=== PATIENT | female | born 1955 | race Caucasian/White ===

== ENCOUNTER 2019-09-17 08:06 | Observation (INO) | payer MEDICARE, OTHER ==
[2019-09-12 09:07] LABS: BASOPHILS % 0.5 % (0.0-1.0); EOSINOPHILS # (AUTO) 0.1 (0.0-0.4); EOSINOPHILS % 1.9 % (0.0-6.0); HEMATOCRIT 36.8 % (34.2-44.1); HEMOGLOBIN 12.4 g/dL (12.0-16.0); LYMPHOCYTES # (AUTO) 1.8 (1.0-3.2); LYMPHOCYTES % 23.5 % (18.0-39.1); MEAN CORPUSCULAR HEMOGLOBIN 29.7 pg (28-32); MEAN CORPUSCULAR HGB CONC 33.7 g/dL (31-35); MEAN CORPUSCULAR VOLUME 88.2 fL (81-99); MONOCYTES # (AUTO) 0.7 (0.2-0.8); MONOCYTES % 9.5 % (4.4-11.3); NEUTROPHILS # (AUTO) 4.9 (2.1-6.9); NEUTROPHILS % 64.3 % (38.7-80.0); PLATELET COUNT 239 x10e3/uL (140-360); RED BLOOD COUNT 4.17 x10e6/uL (3.6-5.1); RED CELL DISTRIBUTION WIDTH 13.2 % (11.7-14.4)
[2019-09-12 09:24] LABS: ANION GAP 16.4 mmol/L (8-16); BLOOD UREA NITROGEN 30 mg/dL (7-26); BUN/CREATININE RATIO 41 (6-25); CARBON DIOXIDE 24 mmol/L (22-29); CHLORIDE 101 mmol/L (98-107); CREATININE, SERUM 0.74 mg/dL (0.57-1.11); EST GLOMERULAR FILTRATION RATE > 60 ML/MIN (60-); GLUCOSE 138 mg/dL (74-118); POTASSIUM 4.4 mmol/L (3.5-5.1); SODIUM 137 mmol/L (136-145)
--- NOTE | 2019-09-12 09:33 | Diagnostic Imaging Report ---
EXAMINATION: CHEST 2 VIEWS INDICATION: Pre-operative COMPARISON: None FINDINGS: LINES/TUBES:None LUNGS:The lungs are well-inflated. No focal consolidation or pulmonary edema. Mild biapical pleural parenchymal thickening/scarring. PLEURA:No pleural effusion or pneumothorax. MEDIASTINUM:The cardiomediastinal silhouette appears normal in size and shape. BONES/SOFT TISSUES:No acute osseous injury. ABDOMEN:No free air under the diaphragm. IMPRESSION: No focal pneumonia or pulmonary edema. Signed by: Dot Bradley MD on 09/12/2019 9:30 AM
[~2019-09-17] VITALS: Ht 154.9 cm; Wt 121.4 kg
[2019-09-17] MEDS: LACTATED RINGER'S 1,000 ML IV SCH ×2 (07:56→18:17)
[~2019-09-17 08:06] MED LIST: BARIATRIC MV-I1 EACH PO; LISINOPRIL-HCT1 EACH PO; METFORMIN HCL500 MG PO; METOPROLOL SUCC25 MG PO; MORPHINE SULFATE 2 MG/ML SYR 1ML IV PRN; NOVOLIN N100 UNIT/1 SC; ONDANSETRON HCL INJ 2MG/ML 2ML 2 MG/ML VIAL IV PRN; PAIN RELIEF PO; SCOPOLAMINE 1.5 MG PATCH TOP SCH; [UNRECOGNIZED DRUG - OTHER] PO
[2019-09-17] MEDS ORDERED: SUGAMMADEX SODIUM 200 MG/2 ML VIAL IV ONE (08:11)
--- OUTSIDE RECORDS SUMMARY | 2019-09-17 08:14 | XMS REPORT ---
Author [facility] Address Unknown Phone Unavailable Care Team Providers Care Registered Dental Hygienist Name Role Phone Ade ESCUDERO Unavailable Unavailable Payers Payer Name Policy Type Policy Number Effective Date Expiration Date Problems This patient has no known problems. Allergies, Adverse Reactions, Alerts Allergy Name Allergy Type Status Severity Reaction(s) Onset Date Inactive Date Treating Clinician Comments codeine DA Active PR 2018-12-31 00:00:00 codeine DA Active PR 2018-05-19 00:00:00 codeine DA Active U 2014-01-20 00:00:00 Medications This patient has no known medications. Results Test Description Test Time Test Comments Text Results Atomic Results Result Comments CHEST 2 VIEWS 2019-09-12 09:29:00 [facility] [address], [place] [address] Patient Name: KHANG BOWDEN MR #: [id number] : 1955 Age/Sex: 64/F Req #: [id number] Adm Physician: Ordered by: JUANCARLOS ESCUDERO MD Report #: [id number] Location: OR Room/Bed: Procedure: [id number] DX/CHEST 2 VIEWS Exam Date: 09/12/19 Exam Time: 899 REPORT STATUS: Signed EXAMINATION: CHEST 2 VIEWS INDICATION: Pre-operative COMPARISON: None FINDINGS: LINES/TUBES:None LUNGS:The lungs are well-inflated. No focal consolidation or pulmonary edema. Mild biapical pleural parenchymal thickening/scarring. PLEURA:No pleural effusion or pneumothorax. MEDIASTINUM:The cardiomediastinal silhouette appears normal in size and shape. BONES/SOFT TISSUES:No acute osseous injury. ABDOMEN:No free air under the diaphragm. IMPRESSION: No focal pneumonia or pulmonary edema. Signed by: Megan Coleman MD on 09/12/2019 9:30 AM Dictated By: MEGAN COLEMAN MD 9 Transcribed By: CELI on 09/12/19929 COPY TO: JUANCARLOS ESCUDERO MD GLUBED 2019-01-04 01:03:00 GLUBED (test code=GLUBED) 234 mg/dL 70-110 [id number] 01:02:00* Test Item Value Reference Range Comments GLUBED (test code=GLUBED) 234 mg/dL 70-110 [id number] 11:13:00* Test Item Value Reference Range Comments GLUBED (test code=GLUBED) 203 mg/dL 70-110 [id number] 07:11:00* Test Item Value Reference Range Comments GLUBED (test code=GLUBED) 189 mg/dL 70-110 [id number] 15:34:00* Test Item Value Reference Range Comments GLUBED (test code=GLUBED) 191 mg/dL 70-110 [id number] 11:06:00* Test Item Value Reference Range Comments GLUBED (test code=GLUBED) 237 mg/dL 70-110 [id number] 06:50:00* Test Item Value Reference Range Comments GLUBED (test code=GLUBED) 227 mg/dL 70-110 BASIC METABOLIC [id number] 06:11:00* Test Item Value Reference Range Comments SODIUM (test code=NA) 138 mmol/l 134.0-147.0 POTASSIUM (test code=K) 3.6 mmol/L 3.6-5.2 CHLORIDE (test code=CL) 105 mmol/l 98.0-107.0 CARBON DIOXIDE (test code=CO2) 24.7 mmol/l 21.0-33.0 ANION GAP (test code=GAP) 11.9 0-20 GLUCOSE (test code=GLU) 242 mg/dl 70.0-110.0 BLOOD UREA NITROGEN (test code=BUN) 11 mg/dl 7.0-18.0 CREATININE (test code=CREAT) 0.72 mg/dL 0.60-1.30 GFR NON BLACK (test code=GFRNONBLACK) 86 mL/min 80-90 GFR BLACK (test code=GFRBLACK) 104 mL/min 97-109 CALCIUM (test code=CA) 8.1 mg/dl 8.0-10.5 [id number] 06:11:00* Test Item Value Reference Range Comments MAGNESIUM (test code=MAG) 1.7 mg/dl 1.8-2.4 CBC W/AUTO [id number] 05:52:00* Test Item Value Reference Range Comments WHITE BLOOD CELL (test code=WBC) 6.3 K/mm3 4.5-11.0 RED BLOOD CELL (test code=RBC) 4.13 M/mm3 3.80-5.20 HEMOGLOBIN (test code=HGB) 11.6 gm/dL 12.0-16.0 HEMATOCRIT (test code=HCT) 36.9 % 36.0-48.0 MEAN CELL VOLUME (test code=MCV) 89.3 UM3 82.0-99.0 MEAN CELL HGB (test code=MCH) 28.1 UUG 25.5-32.5 MEAN CELL HGB CONCETRATION (test code=MCHC) 31.4 gm/dL 29.0-35.5 RED CELL DISTRIBUTION WIDTH (test code=RDW) 13.3 % 11.5-15.0 RED CELL DISTRIBUTION WIDTH SD (test code=RDW-SD) 43.3 fL 34.8-50.2 PLATELET COUNT (test code=PLT) 198 K/mm3 150-400 MEAN PLATELET VOLUME (test code=MPV) 12.0 fl 7.4-10.4 NEUTROPHIL % (test code=NT%) 50.7 % 49.0-76.0 IMMATURE GRANULOCYTE % (test code=IG%) 0.5 % 0.0-0.4 LYMPHOCYTE % (test code=LY%) 38.0 % 23.0-38.0 MONOCYTE % (test code=MO%) 8.1 % 1.0-10.0 EOSINOPHIL % (test code=EO%) 2.2 % 1.0-5.0 BASOPHIL % (test code=BA%) 0.5 % 0.0-1.0 NEUTROPHIL # (test code=NT#) 3.2 K/mm3 2.4-6.3 IMMATURE GRANULOCYTE # (test code=IG#) 0.03 x10 3/uL 0.00-0.07 LYMPHOCYTE # (test code=LY#) 2.4 K/mm3 1.2-4.0 MONOCYTE # (test code=MO#) 0.5 K/mm3 0.0-0.6 EOSINOPHIL # (test code=EO#) 0.1 K/MM3 0.0-0.7 BASOPHIL # (test code=BA#) 0.0 K/mm3 0.0-0.2 THYROID STIMULATING [id number] 16:21:00* Test Item Value Reference Range Comments THYROID STIMULATING HORMONE (test code=TSH) 0.43 IU/ML 0.47-5.01 Result is in International Units/milliliter [id number] 11:59:00* Test Item Value Reference Range Comments GLUBED (test code=GLUBED) 252 mg/dL 70-110 [id number] 08:10:00* Test Item Value Reference Range Comments GLUBED (test code=GLUBED) 222 mg/dL 70-110 COMPREHENSIVE METABOLIC [id number] 08:01:00* Test Item Value Reference Range Comments SODIUM (test code=NA) 133 mmol/l 134.0-147.0 POTASSIUM (test code=K) 4.2 mmol/L 3.6-5.2 CHLORIDE (test code=CL) 99 mmol/l 98.0-107.0 CARBON DIOXIDE (test code=CO2) 25.9 mmol/l 21.0-33.0 ANION GAP (test code=GAP) 12.3 0-20 GLUCOSE (test code=GLU) 277 mg/dl 70.0-110.0 BLOOD UREA NITROGEN (test code=BUN) 14 mg/dl 7.0-18.0 CREATININE (test code=CREAT) 0.72 mg/dL 0.60-1.30 GFR NON BLACK (test code=GFRNONBLACK) 86 mL/min 80-90 GFR BLACK (test code=GFRBLACK) 104 mL/min 97-109 TOTAL PROTEIN (test code=PROT) 6.7 gm/dL 6.4-8.2 ALBUMIN (test code=ALB) 3.0 gm/dl 3.2-4.7 CALCIUM (test code=CA) 8.9 mg/dl 8.0-10.5 BILIRUBIN TOTAL (test code=BILT) 0.6 mg/dl 0.0-1.0 SGOT/AST (test code=AST) 16 Units/L 15.0-37.0 SGPT/ALT (test code=ALT) 38 Units/L 12.0-78.0 ALKALINE PHOSPHATASE TOTAL (test code=ALKP) 65 Units/L 50.0-136.0 Comments to Chemical Process Analyst: Patient is currently in the ED waiting on a bedLIPID PROFILE (CORONARY RISK)2018-12-31 08:01:00* Test Item Value Reference Range Comments TRIGLYCERIDES (test code=TRIG) 75 mg/dl 40.0-150.0 CHOLESTEROL (test code=CHOL) 107 mg/dl 0.0-200.0 CHOLESTEROL/HDL RATIO (test code=CHOLHDL) 2.0 RATIO HDL CHOLESTEROL (test code=HDL) 54 mg/dl 30.0-60.0 LIPOPROTEIN LDL (test code=LDL) 40 mg/dl 70-130 Comments to Chemical Process Analyst: Patient is currently in the ED waiting on a [id number] 08:01:00* Test Item Value Reference Range Comments MAGNESIUM (test code=MAG) 1.8 mg/dl 1.8-2.4 Comments to Chemical Process Analyst: Patient is currently in the ED waiting on a bedCARDIAC ENZYMES [id number] 08:01:00* Test Item Value Reference Range Comments CREATINE KINASE (CK) (test code=CK) 25 Units/L 26-192 TROPONIN-I (test code=TROPI) <0.02 NG/ML 0.00-0.06 REFERENCE RANGE TROPONIN I HEALTHY INDIVIDUALS: <0.06 ng/mL R/O ISCHEMIA: 0.07 - 0.60 ng/mL CUT-OFF RANGE FOR AMI: 0.60 - 1.5 ng/mL : Specimen comments: Please see the initial specimen in the lab as the first draw on this series Comments to Chemical Process Analyst: Please draw the 2nd specimen q4hrs after the first and the 3rd 8hrs after the first.Specime n comments: drawn Q4hrs then [id number] to Chemical Process Analyst: Patient is currently in the ED waiting on a bedCBC W/AUTO [id number] 06:29:00* Test Item Value Reference Range Comments WHITE BLOOD CELL (test code=WBC) 9.0 K/mm3 4.5-11.0 RED BLOOD CELL (test code=RBC) 4.45 M/mm3 3.80-5.20 HEMOGLOBIN (test code=HGB) 12.7 gm/dL 12.0-16.0 HEMATOCRIT (test code=HCT) 38.5 % 36.0-48.0 MEAN CELL VOLUME (test code=MCV) 86.5 UM3 82.0-99.0 MEAN CELL HGB (test code=MCH) 28.5 UUG 25.5-32.5 MEAN CELL HGB CONCETRATION (test code=MCHC) 33.0 gm/dL 29.0-35.5 RED CELL DISTRIBUTION WIDTH (test code=RDW) 12.9 % 11.5-15.0 RED CELL DISTRIBUTION WIDTH SD (test code=RDW-SD) 40.7 fL 34.8-50.2 PLATELET COUNT (test code=PLT) 207 K/mm3 150-400 MEAN PLATELET VOLUME (test code=MPV) 11.9 fl 7.4-10.4 NEUTROPHIL % (test code=NT%) 84.4 % 49.0-76.0 IMMATURE GRANULOCYTE % (test code=IG%) 0.2 % 0.0-0.4 LYMPHOCYTE % (test code=LY%) 10.5 % 23.0-38.0 MONOCYTE % (test code=MO%) 4.5 % 1.0-10.0 EOSINOPHIL % (test code=EO%) 0.1 % 1.0-5.0 BASOPHIL % (test code=BA%) 0.3 % 0.0-1.0 NEUTROPHIL # (test code=NT#) 7.6 K/mm3 2.4-6.3 IMMATURE GRANULOCYTE # (test code=IG#) 0.02 x10 3/uL 0.00-0.07 LYMPHOCYTE # (test code=LY#) 0.9 K/mm3 1.2-4.0 MONOCYTE # (test code=MO#) 0.4 K/mm3 0.0-0.6 EOSINOPHIL # (test code=EO#) 0.0 K/MM3 0.0-0.7 BASOPHIL # (test code=BA#) 0.0 K/mm3 0.0-0.2 Comments to Chemical Process Analyst: Patient is currently in the ED waiting on a bedCARDIAC ENZYMES [id number] 03:05:00* Test Item Value Reference Range Comments CREATINE KINASE (CK) (test code=CK) 22 Units/L 26-192 TROPONIN-I (test code=TROPI) <0.02 NG/ML 0.00-0.06 REFERENCE RANGE TROPONIN I HEALTHY INDIVIDUALS: <0.06 ng/mL R/O ISCHEMIA: 0.07 - 0.60 ng/mL CUT-OFF RANGE FOR AMI: 0.60 - 1.5 ng/mL : Specimen comments: Please see the initial specimen in the lab as the first draw on this series Comments to Chemical Process Analyst: Please draw the 2nd specimen q4hrs after the first and the 3rd 8hrs after the first.Specime n comments: drawn Q4hrs then [id number] to Chemical Process Analyst: Patient is currently in the ED waiting on a bedURINALYSIS COMPLETE 2018-12-30 22:57:00* Test Item Value Reference Range Comments UA COLOR (test code=COLU) LT YELLOW UA APPEARANCE (test code=APPU) CLEAR UA GLUCOSE DIPSTICK (test code=DGLUU) 1000 mg/dl mg/dl NORMAL UA BILIRUBIN DIPSTICK (test code=BILU) NEGATIVE mg/dL NEGATIVE UA KETONE DIPSTICK (test code=KETU) 50 mg/dl mg/dl NEGATIVE UA SPECIFIC GRAVITY (test code=SGU) 1.010 1.000-1.030 UA BLOOD DIPSTICK (test code=ABBY) NEGATIVE Trevor/micL NEGATIVE UA PH DIPSTICK (test code=WILIAM) 6.0 5.0-9.0 UA PROTEIN DIPSTICK (test code=PROU) NEGATIVE mg/dl NEGATIVE UA UROBILINIOGEN DIPSTICK (test code=URO) NORMAL mg/dl NORMAL UA NITRITE DIPSTICK (test code=BAKARI) NEGATIVE NEGATIVE UA LEUKOCYTE ESTERASE DIPSTICK (test code=LEUU) NEGATIVE Hilario/micL NEGATIVE UA WBC (test code=WBCU) 0-2 WBC/HPF NONE UA RBC (test code=RBCU) 0-2 RBC/HPF 0-3 UA EPITHELIAL CELLS (test code=EPIU) 5-10 EPI/HPF 0-3 UA BACTERIA (test code=BACU) FEW NONE UA YEAST (test code=YEASTU) MODERATE NEGATIVE Specimen comments: Clean CatchDRUGS OF ABUSE SCREEN [id number] 22:48:00* Test Item Value Reference Range Comments URN COCAINE (test code=COCAURN) NEGATIVE NEGATIVE Cocaine cut-off concentration: 300 ng/mL URN CANNABINOIDS (test code=CANNABURN) NEGATIVE NEGATIVE Cannabinoids cut-off concentration: 50 ng/mL URN AMPHETAMINE (test code=AMPHETURN) POSITIVE NEGATIVE UNCONFIRMED INITIAL SCREENING ONLY; SUGGEST ADDITIONALCONFIRMATORY TESTING.Amphetamine cut-off concentration: 1000 ng/mL URN BARBITURATE (test code=BARBITURN) NEGATIVE NEGATIVE Barbiturate cut-off concentration: 200 ng/mL URN BENZODIAZEPINE (test code=BENZOURN) NEGATIVE NEGATIVE Benzodiazepine cut- off concentration: 200 ng/mL URN OPIATES (test code=OPIATURN) NEGATIVE NEGATIVE Opiates cut-off concentration: 200 ng/mL URN PHENCYCLIDINE (PCP) (test code=PHENCURN) NEGATIVE NEGATIVE Phencyclidine(PCP) cut-off concentration: 25 ng/ml URN METHADONE (test code=METHAURN) NEGATIVE NEGATIVE Methadone cut-off concentration: 300 ng/mL Specimen comments: .URINALYSIS [id number] 22:40:00* Test Item Value Reference Range Comments UA COLOR (test code=COLU) LT YELLOW UA APPEARANCE (test code=APPU) CLEAR UA GLUCOSE DIPSTICK (test code=DGLUU) 1000 mg/dl mg/dl NORMAL UA BILIRUBIN DIPSTICK (test code=BILU) NEGATIVE mg/dL NEGATIVE UA KETONE DIPSTICK (test code=KETU) 50 mg/dl mg/dl NEGATIVE UA SPECIFIC GRAVITY (test code=SGU) 1.010 1.000-1.030 UA BLOOD DIPSTICK (test code=ABBY) NEGATIVE Trevor/micL NEGATIVE UA PH DIPSTICK (test code=WILIAM) 6.0 5.0-9.0 UA PROTEIN DIPSTICK (test code=PROU) NEGATIVE mg/dl NEGATIVE UA UROBILINIOGEN DIPSTICK (test code=URO) NORMAL mg/dl NORMAL UA NITRITE DIPSTICK (test code=BAKARI) NEGATIVE NEGATIVE UA LEUKOCYTE ESTERASE DIPSTICK (test code=LEUU) NEGATIVE Hilario/micL NEGATIVE UA WBC (test code=WBCU) WBC/HPF NONE UA RBC (test code=RBCU) RBC/HPF 0-3 UA EPITHELIAL CELLS (test code=EPIU) EPI/HPF 0-3 UA BACTERIA (test code=BACU) NONE Specimen comments: Clean CatchBASIC METABOLIC [id number] 22:29:00* Test Item Value Reference Range Comments SODIUM (test code=NA) 131 mmol/l 134.0-147.0 POTASSIUM (test code=K) 3.4 mmol/L 3.6-5.2 CHLORIDE (test code=CL) 94 mmol/l 98.0-107.0 CARBON DIOXIDE (test code=CO2) 21.1 mmol/l 21.0-33.0 ANION GAP (test code=GAP) 19.3 0-20 GLUCOSE (test code=GLU) 361 mg/dl 70.0-110.0 BLOOD UREA NITROGEN (test code=BUN) 15 mg/dl 7.0-18.0 CREATININE (test code=CREAT) 0.90 mg/dL 0.60-1.30 GFR NON BLACK (test code=GFRNONBLACK) 67 mL/min 80-90 GFR BLACK (test code=GFRBLACK) 81 mL/min 97-109 CALCIUM (test code=CA) 9.4 mg/dl 8.0-10.5 Specimen comments: Clean CatchSpecimen comments: .HEPATIC FUNCTION PANEL A 2018-12-30 22:29:00* Test Item Value Reference Range Comments TOTAL PROTEIN (test code=PROT) 8.1 gm/dL 6.4-8.2 ALBUMIN (test code=ALB) 3.8 gm/dl 3.2-4.7 BILIRUBIN TOTAL (test code=BILT) 0.8 mg/dl 0.0-1.0 BILIRUBIN DIRECT (test code=BILD) 0.2 mg/dl 0.0-0.3 SGOT/AST (test code=AST) 24 Units/L 15.0-37.0 SGPT/ALT (test code=ALT) 44 Units/L 12.0-78.0 ALKALINE PHOSPHATASE TOTAL (test code=ALKP) 90 Units/L 50.0-136.0 Specimen comments: Clean CatchSpecimen comments: .[id number] 22:29:00* Test Item Value Reference Range Comments LIPASE (test code=LIP) 79 Units/L 65.0-230.0 Specimen comments: Clean CatchSpecimen comments: .B-TYPE NATRIURETIC PEPTIDE 2018-12-30 22:29:00* Test Item Value Reference Range Comments B-TYPE NATRIURETIC PEPTIDE (test code=BNP) 30 PG/ML 5-100 Specimen comments: Clean CatchSpecimen comments: .[id number] 22:29:00 * Test Item Value Reference Range Comments TROPONIN-I (test code=TROPI) <0.02 NG/ML 0.00-0.06 REFERENCE RANGE TROPONIN I HEALTHY INDIVIDUALS: <0.06 ng/mL R/O ISCHEMIA: 0.07 - 0.60 ng/mL CUT-OFF RANGE FOR AMI: 0.60 - 1.5 ng/mL Specimen comments: Clean CatchSpecimen comments: .BASIC METABOLIC PANEL 2018-12-30 22:19:00* Test Item Value Reference Range Comments SODIUM (test code=NA) 131 mmol/l 134.0-147.0 POTASSIUM (test code=K) 3.4 mmol/L 3.6-5.2 CHLORIDE (test code=CL) 94 mmol/l 98.0-107.0 CARBON DIOXIDE (test code=CO2) 21.1 mmol/l 21.0-33.0 ANION GAP (test code=GAP) 19.3 0-20 GLUCOSE (test code=GLU) 361 mg/dl 70.0-110.0 BLOOD UREA NITROGEN (test code=BUN) 15 mg/dl 7.0-18.0 CREATININE (test code=CREAT) 0.90 mg/dL 0.60-1.30 GFR NON BLACK (test code=GFRNONBLACK) 67 mL/min 80-90 GFR BLACK (test code=GFRBLACK) 81 mL/min 97-109 CALCIUM (test code=CA) 9.4 mg/dl 8.0-10.5 Specimen comments: Clean CatchSpecimen comments: .HEPATIC FUNCTION PANEL A 2018-12-30 22:19:00* Test Item Value Reference Range Comments TOTAL PROTEIN (test code=PROT) 8.1 gm/dL 6.4-8.2 ALBUMIN (test code=ALB) 3.8 gm/dl 3.2-4.7 BILIRUBIN TOTAL (test code=BILT) 0.8 mg/dl 0.0-1.0 BILIRUBIN DIRECT (test code=BILD) 0.2 mg/dl 0.0-0.3 SGOT/AST (test code=AST) 24 Units/L 15.0-37.0 SGPT/ALT (test code=ALT) 44 Units/L 12.0-78.0 ALKALINE PHOSPHATASE TOTAL (test code=ALKP) 90 Units/L 50.0-136.0 Specimen comments: Clean CatchSpecimen comments: .[id number] 22:19:00* Test Item Value Reference Range Comments LIPASE (test code=LIP) 79 Units/L 65.0-230.0 Specimen comments: Clean CatchSpecimen comments: .B-TYPE NATRIURETIC PEPTIDE 2018-12-30 22:19:00* Test Item Value Reference Range Comments B-TYPE NATRIURETIC PEPTIDE (test code=BNP) PG/ML 5-100 Specimen comments: Clean CatchSpecimen comments: .[id number] 22:19:00 * Test Item Value Reference Range Comments TROPONIN-I (test code=TROPI) <0.02 NG/ML 0.00-0.06 REFERENCE RANGE TROPONIN I HEALTHY INDIVIDUALS: <0.06 ng/mL R/O ISCHEMIA: 0.07 - 0.60 ng/mL CUT-OFF RANGE FOR AMI: 0.60 - 1.5 ng/mL Specimen comments: Clean CatchSpecimen comments: .[id number] 22:19:00* Test Item Value Reference Range Comments HGBA1C% (test code=HGBA1C%) 11.3 %A1C 4.8-6.0 ESTIMATED AVERAGE GLUCOSE (test code=EAG) 278 MG/DL Specimen comments: .BASIC METABOLIC [id number] 22:18:00* Test Item Value Reference Range Comments SODIUM (test code=NA) 131 mmol/l 134.0-147.0 POTASSIUM (test code=K) 3.4 mmol/L 3.6-5.2 CHLORIDE (test code=CL) 94 mmol/l 98.0-107.0 CARBON DIOXIDE (test code=CO2) 21.1 mmol/l 21.0-33.0 ANION GAP (test code=GAP) 19.3 0-20 GLUCOSE (test code=GLU) mg/dl 70.0-110.0 BLOOD UREA NITROGEN (test code=BUN) mg/dl 7.0-18.0 CREATININE (test code=CREAT) mg/dL 0.60-1.30 GFR NON BLACK (test code=GFRNONBLACK) mL/min 80-90 GFR BLACK (test code=GFRBLACK) mL/min 97-109 CALCIUM (test code=CA) mg/dl 8.0-10.5 Specimen comments: Clean CatchSpecimen comments: .HEPATIC FUNCTION PANEL A 2018-12-30 22:18:00* Test Item Value Reference Range Comments TOTAL PROTEIN (test code=PROT) gm/dL 6.4-8.2 ALBUMIN (test code=ALB) gm/dl 3.2-4.7 BILIRUBIN TOTAL (test code=BILT) mg/dl 0.0-1.0 BILIRUBIN DIRECT (test code=BILD) mg/dl 0.0-0.3 SGOT/AST (test code=AST) Units/L 15.0-37.0 SGPT/ALT (test code=ALT) Units/L 12.0-78.0 ALKALINE PHOSPHATASE TOTAL (test code=ALKP) Units/L 50.0-136.0 Specimen comments: Clean CatchSpecimen comments: .[id number] 22:18:00* Test Item Value Reference Range Comments LIPASE (test code=LIP) Units/L 65.0-230.0 Specimen comments: Clean CatchSpecimen comments: .B-TYPE NATRIURETIC PEPTIDE 2018-12-30 22:18:00* Test Item Value Reference Range Comments B-TYPE NATRIURETIC PEPTIDE (test code=BNP) PG/ML 5-100 Specimen comments: Clean CatchSpecimen comments: .[id number] 22:18:00 * Test Item Value Reference Range Comments TROPONIN-I (test code=TROPI) NG/ML 0.00-0.06 Specimen comments: Clean CatchSpecimen comments: .PROTHROMBIN [id number] 22:04:00* Test Item Value Reference Range Comments PROTHROMBIN TIME PATIENT (test code=PTP) 11.5 SECONDS 9.9-12.8 INTERNATIONAL NORMAL RATIO (test code=INR) 1.0 0.89-1.14 THE INR IS TO BE USED ONLY FOR MONITORING ORAL ANTICOAGULANTTHERAPY. THE FOLLOWING ARE SUGGESTED RANGES FROM THEAMERICAN COLLEGE OF CHEST PHYSICIANS:INDICATION INR VALUEPROPHYLAXIS OF VENOUS THROMBOSIS (ORTHOPEDIC SURGERY) 2.0 - 3.0PROPHYLAXIS OF VENOUS THROMBOSIS (OTHER THAN HIGH-RISK SURGERY) 2.0 - 3.0TREATMENT OF DEEP VEIN THROMBOSIS OR PULMONARY EMBOLISM 2.0 - 3.0PREVENTION OF SYSTEMIC EMBOLISM TISSUE HEART VALVES 2.0 - 3.0 ACUTE MYOCARDIAL INFARCTION (TO PREVENT SYSTEMIC EMBOLISM) 2.0 - 3.0 ACUTE MYOCARDIAL INFARCTION (TO PREVENT RECURRENT INFARCT) 2.5 - 3.0 VALVULAR HEART DISEASE 2.0 - 3.0 ATRIAL FIBRILATION 2.0 - 3.0BILEAFLET MECHANICAL VALVE IN AORTIC POSITION 2.0 - 3.0MECHANICAL PROSTHETIC VALVES (HIGH RISK) 2.5 - 3.5PRESENCE OF LUPUS ANTICOAGULANT OR ANTIPHOSPHOLIPID ANTIBODIES 2.5 - 3.5 Specimen comments: .THROMBOPLASTIN TIME [id number] 22:04:00* Test Item Value Reference Range Comments THROMBOPLASTIN TIME PARTIAL (test code=PTT) 29.80 SECONDS 25.86-36.07 [facility] Therapeutic Range - APTT of 55.8-85.4 secondscorrelates with plasma heparin concentration of 0.2-0.4 u/mL New range effective - 10/10/2016 Specimen comments: .CBC W/AUTO [id number] 22:00:00* Test Item Value Reference Range Comments WHITE BLOOD CELL (test code=WBC) 11.6 K/mm3 4.5-11.0 RED BLOOD CELL (test code=RBC) 5.10 M/mm3 3.80-5.20 HEMOGLOBIN (test code=HGB) 14.5 gm/dL 12.0-16.0 HEMATOCRIT (test code=HCT) 43.3 % 36.0-48.0 MEAN CELL VOLUME (test code=MCV) 84.9 UM3 82.0-99.0 MEAN CELL HGB (test code=MCH) 28.4 UUG 25.5-32.5 MEAN CELL HGB CONCETRATION (test code=MCHC) 33.5 gm/dL 29.0-35.5 RED CELL DISTRIBUTION WIDTH (test code=RDW) 12.7 % 11.5-15.0 RED CELL DISTRIBUTION WIDTH SD (test code=RDW-SD) 39.6 fL 34.8-50.2 PLATELET COUNT (test code=PLT) 267 K/mm3 150-400 MEAN PLATELET VOLUME (test code=MPV) 12.0 fl 7.4-10.4 NEUTROPHIL % (test code=NT%) 76.4 % 49.0-76.0 IMMATURE GRANULOCYTE % (test code=IG%) 0.4 % 0.0-0.4 LYMPHOCYTE % (test code=LY%) 15.0 % 23.0-38.0 MONOCYTE % (test code=MO%) 7.1 % 1.0-10.0 EOSINOPHIL % (test code=EO%) 0.6 % 1.0-5.0 BASOPHIL % (test code=BA%) 0.5 % 0.0-1.0 NEUTROPHIL # (test code=NT#) 8.9 K/mm3 2.4-6.3 IMMATURE GRANULOCYTE # (test code=IG#) 0.05 x10 3/uL 0.00-0.07 LYMPHOCYTE # (test code=LY#) 1.7 K/mm3 1.2-4.0 MONOCYTE # (test code=MO#) 0.8 K/mm3 0.0-0.6 EOSINOPHIL # (test code=EO#) 0.1 K/MM3 0.0-0.7 BASOPHIL # (test code=BA#) 0.1 K/mm3 0.0-0.2 - XR CHEST 1 [id number] 21:47:00 FAX: Luis Lacey MD [place]: St: REG Name: Ade ADILENEGLOKHANG [facility] : [birth year] Age/S: 63/F [address] [facility] Unit #: [id number] Loc: [place], [place] Phys: [place] [id number] Acct: [id number] Dis Date: Status: REG ER PHONE #: [phone] Exam Date: 12/30/20182143 FAX #: [phone] Reason: Weakness EXAMS: CPT CODE: [id number] XR CHEST 1 V 12926 Site ID: [id number] HISTORY: Weakness FINDINGS: The lungs are clear and normally expanded. The heart and pulmonary vasculature is normal. Osseous structures are unremarkable. IMPRESSION: No acute finding at 2147 Reported and signed by: Chuy Valenzuela M.D. CC: Luis Lacey MD Technologist: MONAE QUINTERO Trnscrd Date/Time/By: 12/30/2018 (2146) : By: [email or web address] PAGE 1 Signed Report FAX: Luis Zuñiga MD [place]: St: REG Name: KHANG BOWDEN [facility] : 1955 Age/S: 63/F [address] [facility] #: [id number] Loc: [place], [place] Phys: Luis Lacey MD 7 7591 Acct: [id number] Dis Date: Stat us: REG ER PHONE #: [phone] Exam Date: 12/30/20182143 FAX #: [phone] Reason: Weakne ss EXAMS: CPT CODE: [id number] XR CHEST 1 V 20655 <Continued> Orig Print D/T: S: 12/30/2018 (7353) PAGE 2 Signed Report - CT HEAD/BRAIN W/O CONT 2018-12-30 21:40:00 FAX: Luis Lacey MD [place]: St: REG Name: KHANG ESCOTO [facility] : 4 Age/S: 63/F [address] [facility] Unit: [id number] [place]: [place]: [place] [address] Acct: [id number] Dis Date: Status: REG ER PHONE #: [phone] Exam Date: 12/30/20182133 FAX #: [phone] Reason: dizzinees EXAMS: CPT CODE: [id number] CT HEAD/BRAIN W/O CONT 86486 EXAM: - CT HEAD/BRAIN W/O CONT HISTORY: Dizziness. TECHNIQUE: Axial tomograms through the brain were obtained without intravenous contrast. This exam was performed according to our departmental dose-optimization program, which includes automated exposure control, adjustment of the mA and/or kV accord ing to patient size and/or use of iterative reconstruction technique. COMPARISON: None available time of interpretation. FINDI NGS: There is no intracranial hemorrhage, mass, or mass effect. Th e ventricular system and sulci are age-appropriate. There is no evidence of acute infarction. The osseous structures and orbits, show no significant abnormalities. The visualized sinuses are relatively clear . The soft tissues are unremarkable. IMPRESSION: No acute intracranial abnormality with no evidence of intracranial hemorrhage. at 2140 Reported and signed by: Damion Guevara M.D. CC: Isaías Lacey MD Technologist: ALEXANDRA VELASCO Trnscrd Dt/Tm: 12/30/2018 (2139) Azul .[email or web address] Orig Print D/T: S: 12/30/2018 (3323 PAGE 1 Signed Report
[2019-09-17] MEDS ORDERED: CEFAZOLIN SOD 1 GM/NS 50ML 100 ML IV ONE (09:03)
[2019-09-17] MEDS ORDERED: BUPIVACAINE 0.25% 30ML SDV INJ ONE (10:06)
[2019-09-17] MEDS ORDERED: FENTANYL CITRATE/PF 100MCG/2 ML INJ ONE ×2 (11:47→14:29)
[2019-09-17] MEDS ORDERED: HYDROMORPHONE 1MG/1ML INJ ONE (12:03)
[2019-09-17] MEDS ORDERED: MORPHINE SULFATE INJ 4 MG/ML INJ 1ML ONE (12:19)
[2019-09-17] MEDS ORDERED: ONDANSETRON HCL INJ 2MG/ML 2ML 2 MG/ML VIAL ONE ×2 (13:06→13:55)
[2019-09-17] MEDS ORDERED: METOCLOPRAMIDE HCL 10 MG/2ML VIAL ONE (13:06)
[2019-09-17] MEDS ORDERED: PROMETHAZINE HCL (IM) 25 MG/ML VIAL ONE (13:19)
[2019-09-17] MEDS ORDERED: LIDOCAINE HCL 2% LOCAL INJ 5 ML SDV VIAL INJ ONE (13:55)
[2019-09-17] MEDS ORDERED: SEVOFLURANE INHAL SOLN 250 ML PEN BTL ONE (13:55)
[2019-09-17] MEDS ORDERED: PROPOFOL IV EMULSION 10 MG/ML 20 ML VIAL ONE (13:55)
[2019-09-17] MEDS ORDERED: ROCURONIUM BROMIDE 10 MG/ML 5ML VIAL ONE (13:55)
[2019-09-17] MEDS ORDERED: LIDOCAINE HCL 2% JELLY 5 ML TUBE ONE (13:55)
[2019-09-17] MEDS ORDERED: DEXAMETHASONE SOD PHOS INJ 4 MG/ML VIAL ONE (13:55)
[2019-09-17] MEDS ORDERED: MIDAZOLAM HCL 2 MG/2 ML VIAL ONE (14:29)
[2019-09-17 15:48] VITALS: BP 146/79
--- NOTE | 2019-09-17 16:34 | Operative Report ---
DATE OF PROCEDURE: 09/17/2019 SURGEON: Iglesia Oliveros MD PREOPERATIVE DIAGNOSES: 1. Morbid obesity, BMI 50. 2. Hypertension. 3. Diabetes mellitus. POSTOPERATIVE DIAGNOSIS: 1. Morbid obesity, BMI 50. 2. Hypertension. 3. Diabetes mellitus. PREOPERATIVE INDICATIONS: Treat disease, prevent complications related to comorbid conditions of obesity. PROCEDURE PERFORMED: Laparoscopic vertical sleeve gastrectomy. ANESTHESIA: General. BUSINESS PROCESS EXPERT: Elfego Vázquez, medical office assistant instructor (needed due to complexity of case). FLUIDS: 500 mL crystalloid. ESTIMATED BLOOD LOSS: 10 mL. DRAINS: None. COMPLICATIONS: None. SPECIMENS: Partial stomach. GRAFTS: None. FINDINGS: 1. Normal upper GI anatomy. 2. Negative intraoperative leak test. PROCEDURE IN DETAIL: The patient was brought to the operating room, was intubated under general endotracheal anesthesia. She was sterilely prepped and draped in the usual fashion. A preprocedure pause was performed identifying the patient, use of perioperative antibiotics, intended procedure, and staff surgeon. Access was gained via a 5 mm left subcostal incision using a Veress needle. The abdomen was insufflated to a pressure of 15 mmHg pressure. Four additional trocars placed in standard position. Liver retractor was used to expose the stomach. The greater curvature of the stomach was mobilized using the [place] LigaSure device from about 3 cm proximal to the pyloric valve to the left steff of the diaphragm. A 32-German insufflating/suctioning bougie was placed along the lesser curvature of the stomach. The greater curvature of stomach was then resected with five firings of a 60 mm purple load Covidien stapling device. Once that was completed, we then did intraoperative leak test, no leaks were identified. The bougie was then removed. I then removed the partial stomach to the right periumbilical port site. The port site was closed with 0 Vicryl suture using the Jonathan-Darya technique in a [id number]-rduah fashion. We then verified hemostasis, removed the liver retractor and desufflated the abdomen. The incision sites were closed with 4-0 Monocryl suture in a subcu fashion. The trocars were removed. 0.25% bupivacaine was used both at the preperitoneal incision sites. The patient tolerated the procedure well. Type of wound was type 2, clean contaminated. IglesiaMD OMAYRA Valenzuela/LUBA /[id number]
[2019-09-17 17:00] VITALS: BP 146/79
--- NOTE | 2019-09-17 17:14 | History and Physical ---
CHIEF COMPLAINT: "I've weight loss surgery." HISTORY OF PRESENT ILLNESS: This 64-year-old white woman, who presented to [facility] with diagnosis of extreme obesity, BMI 48, complicated with underlying hypertension and type 2 diabetes mellitus. Today, the patient underwent successful laparoscopic sleeve gastrectomy. The surgery was performed by Dr. Iglesia Oliveros. At this time, she does have some abdominal pain. Denies any nausea or vomiting. The patient is very somnolent because recently she received intravenous pain medication. REVIEW OF SYSTEMS: GENERAL: Weight has been stable. No fever or chills. HEENT: No headaches. No visual changes. CARDIOVASCULAR/RESPIRATORY: No chest pain. No shortness of breath or cough. GI: Complains of some abdominal pain as well as slight belching. No flatus. No bowel movements. : No urinary tract infection. Cha catheter has been removed. NEUROMUSCULAR: No limb weakness or numbness. ALLERGIES: CODEINE. PAST MEDICAL HISTORY: 1. Type 2 diabetes mellitus. 2. Hypertensive heart disease. 3. Extreme obesity, BMI 48. MEDICATIONS: 1. Lisinopril/hydrochlorothiazide, 20/12.5 once daily. 2. Metformin 500 mg b.i.d. 3. Metoprolol succinate 25 mg daily. 4. Bariatric multivitamin 3 capsules twice a day. 5. NPH insulin 10 units subcutaneously twice a day. 6. Hair balance vitamins 2 capsules twice a day. FAMILY HISTORY: Noncontributory. SOCIAL HISTORY: This woman is single. She lives alone. Her adult daughter lives next door. She is employed as a dispatcher. No history of tobacco or alcohol use. PAST SURGICAL HISTORY: 1. Bilateral tubal ligation. 2. Tonsillectomy. 3. Laparoscopic sleeve gastrectomy today. PHYSICAL EXAMINATION: GENERAL: She is somnolent, but arousable. Her adult granddaughter is at bedside. VITAL SIGNS: Height 5 feet 3 inches. Weight is 267 pounds, BMI 48. Blood pressure 146/78, pulse 78, respiratory rate 18, oxygen saturation is 97% on room air, and temperature 97. INTEGUMENTARY: Skin is warm, dry. No pallor, jaundice, or diaphoresis. HEENT: Anicteric sclerae. Moist mucous membranes. NECK: Supple. CARDIOVASCULAR: Distant heart sounds. Regular rate and rhythm. LUNGS: No rales. No rhonchi or wheezes. ABDOMEN: Obese. She has a large abdominal pannus. The laparoscopic incisions are clean, dry, and intact. EXTREMITIES: No edema or deformity. NEUROLOGIC: Intact. IMPRESSION: 1. Status post laparoscopic sleeve gastrectomy. 2. Extreme obesity, BMI 48, complicated with underlying hypertension and diabetes mellitus. 3. Hypertensive heart disease. 4. Type 2 diabetes mellitus. PLAN: 1. Blood pressure monitoring and control. 2. Blood glucose monitoring and control. 3. Encourage incentive spirometer usage to prevent atelectasis. 4. Start enoxaparin to prevent deep venous thrombosis. 5. Mobilize patient. 6. Pain control. 7. I would like to thank Dr. Oliveros for involving me in the care of this patient. MD JANUSZ Jacques/LUBA /[id number] MTDAnibal
[2019-09-17 20:00] VITALS: BP 115/68
[2019-09-17 22:25] VITALS: BP 146/79
[2019-09-17] MEDS: ENOXAPARIN SOD INJ 40 MG/0.4 ML SYR SC SCH (22:51)
[2019-09-18] VITALS: BP 111/68
[2019-09-18] MEDS: HYDROCODONE/APAP 7.5MG-325MG 1 EA TAB PO PRN ×2 (00:32→06:15)
[2019-09-18] MEDS ORDERED: HYDROCODONE/APAP 7.5MG-325MG 1 EA TAB ONE (00:36)
[2019-09-18 04:00] VITALS: BP 119/71
[2019-09-18] MEDS: LACTATED RINGER'S 1,000 ML IV SCH (06:14)
[2019-09-18 06:27] LABS: ANION GAP 16.1 mmol/L (8-16); CARBON DIOXIDE 25 mmol/L (22-29); CHLORIDE 99 mmol/L (98-107); POTASSIUM 5.1 mmol/L (3.5-5.1); SODIUM 135 mmol/L (136-145)
[2019-09-18 06:28] LABS: ALANINE AMINOTRANSFERASE 34 IU/L (0-55); ALBUMIN 3.8 g/dL (3.5-5.0); ALKALINE PHOSPHATASE 38 IU/L (40-150); BLOOD UREA NITROGEN 13 mg/dL (7-26); BUN/CREATININE RATIO 17 (6-25); CALCIUM 9.9 mg/dL (8.4-10.2); CREATININE, SERUM 0.75 mg/dL (0.57-1.11); EST GLOMERULAR FILTRATION RATE > 60 ML/MIN (60-); GLUCOSE 207 mg/dL (74-118)
--- NOTE | 2019-09-18 07:00 | NUR ---
patient endorsed to next shift for continuity
--- NOTE | 2019-09-18 07:15 | NUR ---
RECEIVED BEDSIDE REPORT FROM JULIO THORNE. PATIENT RESTING AT THIS TIME, NO VISIBLE SIGNS OF DISTRESS NOTED, DENIES PAIN AT THIS TIME. GRAND DAUGHTER AT BEDSIDE. CALL LIGHT WITHIN REACH.
[2019-09-18 07:21] LABS: MAGNESIUM 1.9 MG/DL (1.3-2.1); PHOSPHORUS 3.2 MG/DL (2.3-4.7)
[2019-09-18 07:38] VITALS: BP 119/68
[2019-09-18 07:43] LABS: HEMATOCRIT 35.7 % (34.2-44.1); HEMOGLOBIN 11.5 g/dL (12.0-16.0); MEAN CORPUSCULAR HEMOGLOBIN 29.3 pg (28-32); MEAN CORPUSCULAR HGB CONC 32.2 g/dL (31-35); MEAN CORPUSCULAR VOLUME 91.1 fL (81-99); RED BLOOD COUNT 3.92 x10e6/uL (3.6-5.1)
[2019-09-18 07:44] LABS: BASOPHILS % 0.2 % (0.0-1.0); EOSINOPHILS % 0.1 % (0.0-6.0); LYMPHOCYTES % 9.7 % (18.0-39.1); MONOCYTES % 8.5 % (4.4-11.3); NEUTROPHILS % 81.1 % (38.7-80.0); PLATELET COUNT 274 x10e3/uL (140-360); RED CELL DISTRIBUTION WIDTH 13.6 % (11.7-14.4)
--- NOTE | 2019-09-18 07:45 | NUR ---
Progress Note S: No major complaints; headache overnight O: AF, VSS Labs reviewed General- no distress Abd- soft, incisions c/d/i A/P: POD 1, s/p lap sleeve gastrectomy -Ambulate, clears, IS, OOB to chair -DC home -F/u instructions and diet instructions given to patient
[2019-09-18 08:45] VITALS: BP 119/68
[2019-09-18 09:16] LABS: LYMPHOCYTES # (AUTO) 1.2 (1.0-3.2); NEUTROPHILS # (AUTO) 10.3 (2.1-6.9)
[2019-09-18 09:17] LABS: MONOCYTES # (AUTO) 1.1 (0.2-0.8)
[2019-09-18] MEDS: ENOXAPARIN SOD INJ 40 MG/0.4 ML SYR SC SCH (09:24)
--- NOTE | 2019-09-18 09:47 | Discharge Summary ---
ADMIT DIAGNOSES: 1. Extreme obesity, BMI 48, complicated with underlying hypertension and diabetes mellitus. 2. Hypertensive heart disease. 3. Type 2 diabetes mellitus. DISCHARGE DIAGNOSES: 1. Status post laparoscopic vertical sleeve gastrectomy. 2. Extreme obesity, BMI of 48, complicated with underlying hypertension and type 2 diabetes mellitus. 3. Hypertensive heart disease. 4. Type 2 diabetes mellitus. HOSPITAL COURSE: This is a 64-year-old white woman, who was initially admitted to [facility] with a diagnosis of extreme obesity, BMI 48 that was complicating her underlying hypertension and type 2 diabetes mellitus. During this hospitalization, the patient underwent successful laparoscopic vertical sleeve gastrectomy that was performed by Dr. Iglesia Oliveros. Her brief hospitalization was unremarkable. On discharge, she was tolerating a clear liquid diet. DISCHARGE MEDICATIONS: 1. Tramadol 50 mg every 4 hours p.r.n. pain, 30 prescribed. 2. Zofran 4 mg one every 6 hours p.r.n. nausea and vomiting. 3. Lisinopril/hydrochlorothiazide 20/12.5 daily. 4. Metformin 500 mg b.i.d. 5. Metoprolol succinate 25 mg daily. 6. Bariatric multivitamin 3 capsules twice a day. 7. NPH insulin 10 units subcutaneous twice a day. FOLLOWUP INSTRUCTIONS: The patient was instructed to follow up with Dr. Oliveros within 1 week and with her primary care physician within 2 weeks. MD JANUSZ Jacques/LUBA /[id number] cc: Iglesia Oliveros MD
--- NOTE | 2019-09-18 10:21 | NUR ---
Nutrition Screen Note RD Recommendation for Physician: - Continue Bariatric CL diet x 2 days, per MD discretion ADAT to full liquids - Ensure Max per protocol Plan of Care: RD following, monitoring for tolerance and adequacy - Diet education provided 09/18 Nutrition reason for involvement: MD Consult- post op gastric sleeve diet education Primary Diagnose(s): extreme obesity PMH: extreme obesity, HTN, DM2 Ht: 61 in Wt: 267.44 lb BMI: 50.5 kg/m2 IBW: [address] Assessment: (09/18/19) 64 YOF admitted for laparoscopic sleeve gastrectomy, pt POD#1 for laparoscopic sleeve gastrectomy. Pt seen today per diet education consult for post operative bariatric diet progression. Pt and pt's daughter educated on progression of diet including CL, full liquids, pureed, and GI soft diets. Pt educated on fluid goals, protein supplements, and vitamin/minerals recommendations. All questions and concerns addressed at time of visit. Chart reviewed. Labs and meds reviewed, BG trend elevated- no DM meds given. RN notified that education completed. Will continue to monitor. Current Diet: clear liquids Malnutrition Evaluation (09/18/19) The patient does not meet criteria for a specified degree of malnutrition at this time. Will re-evaluate at follow-up as appropriate. Diet Education Needs Assessment: Diet education indicated, pt receptive to diet education Learner(s): pt, pt's daughter Barriers: none Cultural/Language Modifications: none Readiness: ready Method: handouts, discussion Topics: post-op bariatric diet progression Understanding/Compliance: good Diet tolerance: tolerating CL Nutrition Care Level: Low Signed: Macie Waters RD, LD, [facility]
[2019-09-18 11:15] VITALS: BP 110/57
--- NOTE | 2019-09-18 11:17 | NUR ---
RECEIVED DISCHARGE ORDERS. PATIENT DISCHARGE INSTRUCTIONS AND PACKET PROVIDED WITH PRESCRIPTIONS. VERBALIZED UNDERSTANDING WITH GRAND DAUGHTER AT BEDSIDE. IV DISCONTINUED WITH DISTAL TIP INTACT, DRESSING APPLIED WITH PRESSURE. NO BLEEDING NOTED. ALL BELONGINGS RETURNED TO PATIENT. TRANSFERRED TO PRIVATE VEHICLE VIA WHEELCHAIR WITHOUT INCIDENT. VITAL SIGNS/PATIENT IN STABLE CONDITION.
== END 2019-09-18 11:17 | disposition home or self-care (01) ==
LOC: OR 08:06 → PACU V 15:45 → MED/SURG 15:49
PROVIDERS: ADMIT Internal Medicine; ATTEND Internal Medicine
DX: E66.01 Morbid (severe) obesity due to excess calories (principal); Z68.42 Body mass index [BMI] 45.0-49.9, adult; E11.9 Type 2 diabetes mellitus without complications; Z88.5 Allergy status to narcotic agent; I11.0 Hypertensive heart disease with heart failure; I50.9 Heart failure, unspecified; K21.9 Gastro-esophageal reflux disease without esophagitis; F41.9 Anxiety disorder, unspecified; Z01.810 Encounter for preprocedural cardiovascular examination; Z01.812 Encounter for preprocedural laboratory examination; Z01.811 Encounter for preprocedural respiratory examination; Z79.4 Long term (current) use of insulin
CPT/HCPCS: 36415 ×3; 43775; 71046; 80048; 80053; 82948 ×2; 83735; 84100; 85025 ×2; 93005; G0378 ×2; J0690; J1100; J1170; J1650 ×2; J2001 ×2; J2250; J2270; J2405; J2550; J2704; J2765; J3010; J7121 ×2